=== PATIENT | male | born 1990 | race Caucasian/White ===

== ENCOUNTER 2017-03-04 20:47 | Emergency (ER) | payer OTHER ==
[2017-03-04 20:59] VITALS: BP 138/93
--- NOTE | 2017-03-04 21:17 | ED Physician Documentation ---
PD HPI SKIN - Stated complaint Stated Complaint: MALE - Chief complaint Chief Complaint: Wound - History obtained from History obtained from: Patient - History of Present Illness Timing - onset: Other (He has had a long-standing intermittent rash on his groin , previously diagnosed as jock itch. Now he has lesions on the shaft of the penis which is atypical and he wonders if it might be something else. He is in a monogamous long-term relationship, has been for 7 months.) PD PAST MEDICAL HISTORY - Past Medical History Past Medical History: No - Past Surgical History Past Surgical History: No - Present Medications Home Medications: Ambulatory Orders Medication Instructions Recorded Confirmed Acyclovir 800 mg PO TID 10 Days #6 tablet 03/04/17 - Allergies Allergies/Adverse Reactions: Allergies Allergy/AdvReac Type Severity Reaction Status Date / Time No Known Drug Allergies Allergy Verified 03/04/17 20:59 - Social History Does the pt smoke?: No Smoking Status: Never smoker Does the pt drink ETOH?: No Does the pt have substance abuse?: No - Immunizations Immunizations are current?: Yes - POLST Patient has POLST: No PD ED PE NORMAL - Vitals Vital signs reviewed: Yes - General General: Alert and oriented X 3, No acute distress - Abdomen Abdomen: Soft, Non tender - Male Male : Other (grouped vesicles on the left side of shaft of penis.) - Neuro Neuro: Alert and oriented X 3, Normal speech Results - Vitals Vitals: Vital Signs - 24 hr 03/04/17 20:57 Temperature 36.5 C Heart Rate 76 Respiratory 20 Rate Blood Pressure 138/93 H O2 Saturation 99 Oxygen O2 Source Room air PD MEDICAL DECISION MAKING - ED course ED course: Examination is most consistent with genital herpes. For confirmation IgG was sent and I will call him with the results. Departure - Departure Disposition: Home, Self Care Clinical Impression: Genital herpes simplex type 2 Condition: Good Record reviewed to determine appropriate education?: Yes Instructions: ED Herpes Simplex Virus Type 2 Prescriptions: Acyclovir 800 mg PO TID 10 Days #6 tablet Comments: Call your doctor to arrange a follow-up appointment, make the next available appointment. In the interim, return anytime if worse or if new symptoms develop. Your blood pressure was elevated today on check into the emergency department. This does not mean that you have hypertension, it is a common phenomenon to come to the emergency department and have elevated blood pressure. I recommend that you see your primary care physician within the week to have it rechecked when you are feeling better.
== END 2017-03-04 21:46 | disposition home or self-care (01) ==
LOC: ED 20:47
DX: A60.01 Herpesviral infection of penis (principal); R03.0 Elevated blood-pressure reading, without diagnosis of hypertension
CPT/HCPCS: 36415; 86695; 86696; 99283

== ENCOUNTER 2020-04-22 14:06 | Emergency (ER) | payer OTHER ==
[2020-04-22 14:13] VITALS: BP 146/75
[2020-04-22] MEDS ORDERED: cephALEXin 250 MG CAPSULE PO STA (14:41)
[2020-04-22] MEDS ORDERED: predniSONE 20 MG TABLET PO STA (14:41)
--- NOTE | 2020-04-22 14:46 | ED Physician Documentation ---
History of Present Illness - Stated complaint Stated Complaint: LT ARM RED/ITCHY - Chief complaint Chief Complaint: Wound - History obtained from History obtained from: Patient - History of Present Illness Timing: How many days ago (3) Pain level max: 0 Pain level now: 0 - Additonal information Additional information: 29-year-old male states that he had a tattoo on the left forearm performed on April 10. He states that he has had increased redness, swelling and itching over the past few days. Concerned about infection. No fevers. No chills. Nothing makes it better or worse. Has been using antibacterial soap and lotion at home Review of Systems Constitutional: denies: Fever, Chills GI: denies: Vomiting PD PAST MEDICAL HISTORY - Past Medical History Past Medical History: Yes Cardiovascular: None Respiratory: None Neuro: None Endocrine/Autoimmune: None GI: None : None HEENT: None Psych: None Musculoskeletal: None Derm: None - Past Surgical History Past Surgical History: No - Present Medications Home Medications: Ambulatory Orders Medication Instructions Recorded Confirmed Cephalexin [Keflex] 500 mg PO Q6H #28 capsule 04/22/20 predniSONE [Deltasone] 40 mg PO DAILY #10 tablet 04/22/20 - Allergies Allergies/Adverse Reactions: Allergies Allergy/AdvReac Type Severity Reaction Status Date / Time No Known Drug Allergies Allergy Verified 04/22/20 14:12 - Social History Does the pt smoke?: No Smoking Status: Never smoker Does the pt drink ETOH?: No Does the pt have substance abuse?: No - Immunizations Immunizations are current?: Yes - POLST Patient has POLST: No PD ED PE NORMAL - Vitals Vital signs reviewed: Yes - General General: Alert and oriented X 3, No acute distress - HEENT HEENT: Moist mucous membranes - Neck Neck: Supple, no meningeal sign - Derm Derm: Warm and dry - Extremities Extremities: Other (Left forearm there is a tattoo that is about 4 x 10 cm. 1cm Surrounding erythema and swelling. No streaking. Blanches easily. Warm.) - Neuro Neuro: Alert and oriented X 3 Results - Vitals Vitals: Vital Signs - 24 hr 04/22/20 14:10 Temperature 36.8 C Heart Rate 73 Respiratory 18 Rate Blood Pressure 146/75 H O2 Saturation 98 Oxygen O2 Source Room air PD MEDICAL DECISION MAKING - ED course Complexity details: considered differential, d/w patient ED course: Unclear if this represents an infection versus inflammatory response versus allergy. We will trial on steroids and Keflex. Patient is well-appearing, nontoxic. Afebrile. No evidence of abscess. No streaking up the arm. Patient counseled regarding signs and symptoms for which I believe and urgent re-evaluation would be necessary. Patient with good understanding of and agreement to plan and is comfortable going home at this time This document was made in part using voice recognition software. While efforts are made to proofread this document, sound alike and grammatical errors may occur. Departure - Departure Disposition: Home, Self Care Clinical Impression: Dermatitis Cellulitis Qualifiers: Site of cellulitis: extremity Site of cellulitis of extremity: upper extremity Laterality: left Qualified Code(s): L03.114 - Cellulitis of left upper limb Condition: Good Instructions: ED Infec Skin Cellulitis Follow-Up: your,doctor in 1 week [Other] Prescriptions: predniSONE [Deltasone] 40 mg PO DAILY #10 tablet Cephalexin [Keflex] 500 mg PO Q6H #28 capsule Comments: Use the medications as prescribed. This may be a reaction to the ink, this could also be an infection. Both will appear similar. We will be treating you for both and see how you progress. Return if you worsen. Follow-up with your doctor for a wound check next week.
== END 2020-04-22 15:02 | disposition home or self-care (01) ==
LOC: ED 14:06
DX: L03.114 Cellulitis of left upper limb (principal); L30.9 Dermatitis, unspecified; L81.8 Other specified disorders of pigmentation
CPT/HCPCS: 99282; 99284; A9270; J7512

== ENCOUNTER 2020-11-29 17:04 | Emergency (ER) | payer OTHER ==
[2020-11-29] MEDS ORDERED: predniSONE 20 MG TABLET PO STA (17:29)
[2020-11-29] MEDS: IPRATROPIUM/ALBUTEROL 3 ML NEB INH STA ×2 (17:32)
--- NOTE | 2020-11-29 17:42 | ED Physician Documentation ---
History of Present Illness - Stated complaint Stated Complaint: BODY RASH - Chief complaint Chief Complaint: Allergic Rx - History obtained from History obtained from: Patient - History of Present Illness Timing: How many days ago (3) Pain level max: 0 Pain level now: 0 - Additonal information Additional information: Patient is a 30-year-old male who presents to the emergency department for rash to the right lower extremity, of the right groin and the left leg. These have been ongoing for the past 2 to 3 days. Initially the groin rash was itchy, but is no longer itchy. The right lower extremity rash has been itchy intermittently. Does not recall any new soaps, detergents, exposures. No outdoor pets. Nothing makes it better or worse. No fevers. No chills. No recent illness Review of Systems Constitutional: denies: Fever, Chills GI: denies: Vomiting, Diarrhea Musculoskeletal: denies: Neck pain, Back pain Neurologic: denies: Headache PD PAST MEDICAL HISTORY - Past Medical History Past Medical History: No Cardiovascular: None Respiratory: None Neuro: None Endocrine/Autoimmune: None GI: None : None HEENT: None Psych: None Musculoskeletal: None Derm: None - Past Surgical History Past Surgical History: No - Present Medications Home Medications: Ambulatory Orders Medication Instructions Recorded Confirmed cephALEXin [Keflex] 500 mg PO Q6H #28 capsule 04/22/20 predniSONE [Deltasone] 40 mg PO DAILY #10 tablet 04/22/20 predniSONE [Deltasone] 10 mg PO [id number] #42 tab 11/29/20 - Allergies Allergies/Adverse Reactions: Allergies Allergy/AdvReac Type Severity Reaction Status Date / Time No Known Drug Allergies Allergy Verified 11/29/20 17:06 - Social History Does the pt smoke?: No Smoking Status: Never smoker Does the pt drink ETOH?: No Does the pt have substance abuse?: No - Immunizations Immunizations are current?: Yes - POLST Patient has POLST: No PD ED PE NORMAL - Vitals Vital signs reviewed: Yes - General General: Alert and oriented X 3, No acute distress - HEENT HEENT: Moist mucous membranes - Neck Neck: Supple, no meningeal sign - Cardiac Cardiac: RRR - Respiratory Respiratory: No respiratory distress, Clear bilaterally - Abdomen Abdomen: Soft, Non tender, Non distended - Derm Derm: Warm and dry - Extremities Extremities: Other (There is a 4 x 4 centimeter area, erythematous, no scaling, no plaque to RLE, similar rash to LLE and R groin near the waistband (2x2cm)) - Neuro Neuro: Alert and oriented X 3 - Psych Psych: Normal mood, Normal affect Results - Vitals Vitals: Vital Signs - 24 hr 11/29/20 17:07 Temperature 36.5 C Heart Rate 68 Respiratory 16 Rate O2 Saturation 98 Oxygen O2 Source Room air PD MEDICAL DECISION MAKING - ED course Complexity details: considered differential, d/w patient ED course: Dermatitis of unclear etiology. Patient will follow up with his doctor and/or dermatology as needed for further care. Does not appear fungal. Does not appear to be infectious or cellulitis. Will trial on steroids. Patient counseled regarding signs and symptoms for which I believe and urgent re- evaluation would be necessary. Patient with good understanding of and agreement to plan and is comfortable going home at this time This document was made in part using voice recognition software. While efforts are made to proofread this document, sound alike and grammatical errors may occur. Departure - Departure Disposition: 01 Home, Self Care Clinical Impression: Dermatitis Condition: Good Instructions: ED Dermatitis Non Specific Rash Follow-Up: [facility] [Provider Group] - Within 1 week Prescriptions: predniSONE [Deltasone] 10 mg PO [id number] #42 tab Comments: The cause of your symptoms is unclear today. Please follow-up with your doctor for further care. You should also consider follow-up with dermatology if this does not improve.
[2020-11-29 17:53] VITALS: BP 131/82
== END 2020-11-29 17:53 | disposition home or self-care (01) ==
LOC: ED 17:04
DX: L30.9 Dermatitis, unspecified (principal)
CPT/HCPCS: 99282; 99284; J7512

== ENCOUNTER 2022-05-27 06:40 | Emergency (ER) | payer OTHER ==
[2022-05-27 06:55] VITALS: BP 143/88
[2022-05-27] MEDS ORDERED: CETIRIZINE 10 MG TABLET PO STA (08:13)
--- NOTE | 2022-05-27 08:15 | ED Physician Documentation ---
PD HPI OPHTHO - Stated complaint Stated Complaint: RT EYE SWELLING/REDNESS - Chief complaint Chief Complaint: Heent - History obtained from History obtained from: Patient - History of Present Illness Timing - onset: How many days ago (2) Timing - duration: Days (2) Timing - details: Gradual onset, Still present (much worse swelling and redness this morning, with notable edema of the sclera.) Location: Right Quality / character: Burning Associated symptoms: Redness, Swelling, Matting. No: Photophobia, Decreased vision, Headache Contributing factors: No: Exposed to conjunctivitis, Recent URI, FB, Wears contacts Similar symptoms before: Has not had sx before Recently seen: Clinic (he had irritation and redness with some matting of right eye and went to walk in clinic yesterday and rx neomycin/polymixin/sulfa eye drops for Dx of conjunctivitis. Patient used drops in evening and before bed. Awoke this morning with marked hyperemia and scleral edema. Left eye feels okay.) Review of Systems Constitutional: denies: Fever, Chills Nose: denies: Rhinorrhea / runny nose, Congestion Throat: denies: Sore throat PD PAST MEDICAL HISTORY - Past Medical History Cardiovascular: None Respiratory: None Neuro: None Endocrine/Autoimmune: HyPOthyroidism GI: None : None HEENT: None, Other Psych: None Musculoskeletal: None Derm: None Other Past Medical History: conjunctivitis - Past Surgical History Past Surgical History: No HEENT: Cataracts - Present Medications Home Medications: Ambulatory Orders Medication Instructions Recorded Confirmed Levothyroxine Sodium [Synthroid] 50 mg PO DAILY 02/26/22 05/27/22 Ketotifen Fumarate [Alaway] 2 - 3 drops RIGHTEYE QID 5 Days #5 05/27/22 ml Tobramycin [Tobrex] 2 drops RIGHTEYE QID 5 Days #5 ml 05/27/22 - Allergies Allergies/Adverse Reactions: Allergies Allergy/AdvReac Type Severity Reaction Status Date / Time No Known Drug Allergies Allergy Verified 05/27/22 06:50 - Social History Does the pt smoke?: No Smoking Status: Never smoker Does the pt drink ETOH?: No Does the pt have substance abuse?: No - Immunizations Immunizations are current?: Yes - POLST Patient has POLST: No PD ED PE NORMAL - Vitals Vital signs reviewed: Yes - General General: Alert and oriented X 3, No acute distress, Well developed/nourished - HEENT HEENT: PERRL, EOMI, Other (left eye appears normal. No direct nor consensual pain with light. Pupils react. Anterior and posterior chambers appear normal. marked hyperemia right eye, with scleral redness and also edematous swelling, more to the 6-10 oclock areas. ) Results - Vitals Vitals: Vital Signs - 24 hr 05/27/22 06:51 Temperature 36.9 C Heart Rate 84 Respiratory 16 Rate Blood Pressure 143/88 H O2 Saturation 97 Oxygen O2 Source Room air PD Medical Decision Making - ED course Complexity details: considered differential (seems conjunctivitis is reasonable initial diangosis. the marked increase in redness/sceral edema this monring seems almost too much reaction for conjunctivitis infectious and I would consider allergic reaction to the drops. As such I would change abx drops. Can also add in Ketotifen antihistamine. ), d/w patient Social Determinants of Health: he is due to go on deployment in 1 day. I believe he will be okay for that, as infectious pink eye is less contagious after 24 hours on meds, and the edema of the sclera whould be considerable decreased once stopping the current drops and adding antihistamine. Departure - Departure Disposition: 01 Home, Self Care Clinical Impression: Conjunctivitis, right eye Qualifiers: Conjunctivitis type: acute Acute conjunctivitis type: unspecified Qualified Code(s): H10.31 - Unspecified acute conjunctivitis, right eye Condition: Stable Record reviewed to determine appropriate education?: Yes Follow-Up: [facility] [Provider Group] Prescriptions: Ketotifen Fumarate [Alaway] 2 - 3 drops RIGHTEYE QID 5 Days #5 ml Tobramycin [Tobrex] 2 drops RIGHTEYE QID 5 Days #5 ml Comments: The worsening of your with the redness and swelling of the sclera may be a progression of the conjunctivitis/pinkeye that you had been developing. However as dramatic as it is, more inclined to think an allergic reaction to the antibiotic drops that you were prescribed. I would have you stop the current antibiotic eyedrops. We can change to tobramycin eyedrops 4 times daily for the next 4 to 5 days. I would also add ketotifen antihistamine eyedrops 2 to 3 drops 4 times a day over the next couple of days and then as needed for redness and swelling. I would anticipate improvement through the day today and into tomorrow. You should be noninfectious after another 24 hours on the drops so you are cleared for your travel tomorrow. I sent your prescriptions to [facility] in [place]. Recheck if not improving well through the day or if continued worsening. Discharge Date/Time: 05/27/22 08:33
== END 2022-05-27 08:33 | disposition home or self-care (01) ==
LOC: ED 06:40
DX: H10.31 Unspecified acute conjunctivitis, right eye (principal)
CPT/HCPCS: 99282; 99283; A9270

== ENCOUNTER 2022-11-28 17:12 | Outpatient (CLI) | payer OTHER ==
--- NOTE | 2022-12-01 08:41 | MRI Report ---
PROCEDURE: LUMBAR SPINE WO INDICATIONS: LOW BACK PAIN TECHNIQUE: Noncontrast sagittal T1 spin echo and T2 fast echo, sagittal STIR, axial T1 and T2 fast spin echo thr ough the lumbar spine. In cases with scoliosis, additional coronal T2 fast spin echo may be performe d. COMPARISON: None. FINDINGS: Image quality: Excellent. Alignment and Curvature: There is normal bony alignment. Bone Marrow: Marrow is of normal overall signal. No acute vertebral body compression fractures. Spinal Cord: Conus medullaris terminates at the L1-L2 level. Visualized cord demonstrates normal si gnal and size. Paraspinous Soft Tissues: No paravertebral masses. T12-L1: Normal in appearance. L1-L2: Normal in appearance. L2-L3: Normal in appearance. L3-L4: Normal in appearance. L4-L5: Very mild facet hypertrophy. No canal stenosis or foraminal stenosis. L5-S1: Disc bulge. Facet hypertrophy. Mild canal stenosis. Right foraminal annulus tear, plus disc bulge abutting the right S1 nerve root in the right lateral recess . Mild to moderate bilateral lamar inal stenosis. IMPRESSION: 1. Lower lumbar facet arthropathy. 2. At L5-S1 there is mild canal stenosis. There is an annulus tear plus disc bulge subjacent to the r ight S1 nerve root in the right lateral recess. Disc material abuts the right S1 nerve root. Question : Does this patient have right S1 radiculopathy? Reviewed by: Ruben Lau MD on 12/01/2022 8:40 AM PDT Approved by: Ruben Lau MD on 12/01/2022 8:40 AM PDT Station ID: [id number]
== END 2022-11-28 17:13 | disposition home or self-care (01) ==
LOC: DI 17:12
PROVIDERS: ATTEND Preventive Medicine Aerospace Medicine
DX: M47.816 Spondylosis without myelopathy or radiculopathy, lumbar region (principal); M48.07 Spinal stenosis, lumbosacral region; M51.37 Other intervertebral disc degeneration, lumbosacral region

== ENCOUNTER 2023-01-14 08:24 | Outpatient (CLI) | payer OTHER ==
--- NOTE | 2023-01-14 09:18 | Sleep Patient Instructions ---
Sleep Center Visit Summary - Patient Visit Information Reason for Visit: Initial consult for evaluation of sleep disordered breathing and other sleep issues. - Patient Instructions Instructions Attached: Sleep Study Home Monitor Additional Instructions: You will be completing a sleep study, either an in-lab polysomnography (PSG) or home sleep study (HST). You will follow-up in the sleep care office after the sleep study is completed to hear the results and talk about therapy, if needed. You will be called by our office staff to schedule this appointment, but you may contact us with any questions. - Clinic Information Contact: [facility] [address] [place] [address] [email or web address] T: [phone]
--- NOTE | 2023-01-14 09:28 | SLEEP CARE CONSULTATION ---
Information from patient questionnaire entered by Sujit Gabriel. I have reviewed and concur with the information entered by Sujit Gabriel. This document represents the service I personally performed and the decisions made by me, Kamilla Fontanez ARNP. History of Present Illness Service Date and Time: 01/14/2023 08 Reason for Visit: New patient Chief Complaint: reports: Snoring, Excessive daytime sleepiness, Observed pauses in breathing Date of Onset: 1+YRS Usual bedtime: 930-10PM Time it takes to fall asleep: 1.5 HRS OR LESS Snores at night: Yes Observed to quit breathing while asleep: Yes Sleeps alone due to snoring: Yes Number of times waking at night: 3 Reasons for waking at night: reports: Choking, Snoring, Bathroom, Other (UNKNOWN; coughing). denies: Gasping for air Toss, Turn, or Twitch while sleeping: Yes Recalls having dreams: Yes (sometimes) Usually gets out of bed at: 0530, sometimes later Feels refreshed in the morning: No Morning headache: Yes (3-4 days a week; last till 11-12 pm) Sleepy or fatigued during the day: Yes Ever fallen asleep while driving: No (can get drowsy driving with long drives) Takes day naps: No Prior sleep studies: No Additional HPI information: I had the pleasure of seeing ROLAN WALKER today regarding the possibility of him having a sleep disorder. His current complaints are excessive daytime sleepiness, snoring and observed pauses in breathing. He states his has encouraged him to get his snoring checked out because it is so loud and he will keep her up with his coughing at night. He will wake up coughing and get drinks of water. He sometimes feels like there is something in his throat which triggers the cough and sometimes it is just dry. He wakes up feeling fatigued and is tired all day. He has been told that he will stop breathing and then take an quick inhale and cough then returning to snoring. He wakes up with headache half the time in the mornings that resolve after a few hours. - Parasomnia Symptoms Ever been unable to move upon waking from sleep: No Walks in sleep: No Talks in sleep: Yes Ever acted out dreams in sleep: No Ever felt weak in the knees when startled or emotional: No Bothered by creepy, crawly, restless sensations in legs: No Problems with memory or concentration: Yes (concentration sometimes) Subjective Initial [place] Sleepiness Scale score: 14 (01/14/23) Past Medical History Past Medical History: reports: Hypothyroidism, Anxiety, Depression Social History The patient's occupation is a AM. Patient is and lives in [place]. Have you smoked in the past 12 months: No Alcohol use: No Caffeine use: Yes Caffeine amount and frequency: 2 EVERYDAY Family History Family history of sleep disordered breathing: Yes Family Hx Sleep Apnea: Mother: Snoring, Father: Snoring, Sibling: Snoring, Grandparent: Snoring Allergies and Home Medications Known drug allergies: No Drug allergies reviewed: Yes Home medication list reviewed: Yes Allergy and home medication list: Allergies No Known Drug Allergies Allergy (Verified 01/13/23 12:34) Home Medications Medication Instructions Recorded Confirmed Last Taken Type Levothyroxine Sodium [Synthroid] See Rx Instructions .ROUTE .COMPLEX 01/14/23 01/14/23 Unknown History Meloxicam See Rx Instructions .ROUTE .COMPLEX 01/14/23 01/14/23 Unknown History Review of Systems Weight loss over past 5 years: 50 Cardiovascular: denies: high blood pressure Respiratory: reports: chronic cough. denies: shortness of breath Gastrointestinal: reports: heartburn Neurological: denies: headaches, head trauma Psychiatric: reports: anxiety, depression. denies: Attention Deficit Hypera ctivity Ear/Nose/Throat: reports: nasal congestion, sinus problems, wisdom teeth removed. denies: injury to nose, tonsillectomy Endocrine: reports: thyroid disease Musculoskeletal: reports: joint pain, neck pain, back pain Immunologic: reports: sneezing, allergies to food or environment Physical Exam Vital signs obtained and entered by: SUJIT Woodall MA Blood Pressure: 118/76 (LEFT ARM) Cuff size: regular Heart Rate: 58 O2 Saturation: 98 Height: 5 ft 7 in Weight: 207 lb Body Mass Index: 32.4 BMI Classification: Obese Neck circumference: 16.5 Mouth and throat: narrow oropharynx Soft palate: long Hard palate: normal Uvula: normal Uvula visualization: 25% Mallampati Class III Tongue: normal in size Tonsils: 1+ Neck: normal w/o lymphadenopathy or thyromegaly Heart: regular rate and rhythm Lungs: clear bilaterally Impression and Plan 1. Suspected Obstructive Sleep Apnea-Hypopnea Syndrome, as suggested by a history of loud and irregular snoring, observed cessation of breath while asleep, gasping or choking in sleep, morning headache, unrefreshed sleep, cognitive impairment, and excessive daytime sleepiness. Narrow oropharynx and obesity are common predisposing factors for obstructive sleep apnea-hypopnea syndrome. I recommend proceeding to polysomnography to confirm the diagnosis and to assess severity. If the patient has significant sleep disordered breathing, a manual CPAP titration study will also be performed to find the optimal treatment pressure. I informed the patient of what the sleep studies involve and after some discussion, obtained agreement to proceed. The pathophysiology of obstructive sleep apnea-hypopnea syndrome was discussed with the patient and health risks of cardiovascular and cerebrovascular disease if not treated. Risks of drowsy driving discussed in detail and patient advised to avoid long distance driving and to pull through hooker at the first sign of drowsiness. Patient agreed to plan. * Schedule polysomnography. * Avoid long distance driving or driving when feeling sleepy. * Avoid alcohol, sedative and muscle relaxant around bedtime. * Attempt to lose weight. * Review instructions provided by trained office staff on how to prepare for the sleep study. * Return for follow-up after sleep study completed. Counseling Topics: Weight loss health impact Plan: PSG/HST and then followup Visit Type: In Office Time Spent with Patient (minutes): 30 Provider Statement: I spent 100% of the Face to Face Visit with the patient with greater than 50% spent counseling the patient and coordination of care.
[2023-01-14 09:29] VITALS: BP 118/76; O2SAT 98
== END 2023-01-14 08:25 | disposition home or self-care (01) ==
LOC: SC 08:24
PROVIDERS: ATTEND Nurse Practitioner Family
DX: R06.83 Snoring (principal); G47.8 Other sleep disorders; R06.81 Apnea, not elsewhere classified; R51.9 Headache, unspecified; G47.10 Hypersomnia, unspecified; R53.83 Other fatigue; F32.A Depression, unspecified; E66.9 Obesity, unspecified; Z68.32 Body mass index [BMI] 32.0-32.9, adult
CPT/HCPCS: 99203; 99212

== ENCOUNTER 2023-01-26 12:01 | Outpatient (CLI) | payer OTHER | END 2023-01-26 12:02 | disposition home or self-care (01) | LOC: SC 12:01 | PROVIDERS: ATTEND Nurse Practitioner Family | DX: G47.33 Obstructive sleep apnea (adult) (pediatric) (principal); R09.02 Hypoxemia; E66.9 Obesity, unspecified; Z68.32 Body mass index [BMI] 32.0-32.9, adult | CPT/HCPCS: 95806 ==

== ENCOUNTER 2023-02-03 12:38 | Outpatient (CLI) | payer OTHER ==
--- NOTE | 2023-02-03 13:13 | Sleep Patient Instructions ---
Sleep Center Visit Summary - Patient Visit Information Reason for Visit: Sleep study followup - Patient Instructions Instructions Attached: CPAP Dc, CPAP Additional Instructions: You are being started on CPAP therapy with pressure setting at 4-15 cmH2O. You will need to call the sleep care office to set up your follow up once you have your APAP machine and we will schedule a visit to check compliance and response to therapy at that time. You may call the office with any concerns about pressure feeling too low or too much for adjustment, if needed. You should contact DME supplier for any questions or concerns about mask or equipment. Please call office to schedule a follow up appointment in the sleep care office one month after obtaining new device. - Clinic Information Contact: [facility] [address] [place] [address] [email or web address] T: [phone]
--- NOTE | 2023-02-03 13:16 | SLEEP CARE CONSULTATION ---
Information from patient questionnaire entered by Keeley Gabriel. I have reviewed and concur with the information entered by Keeley Gabriel. This document represents the service I personally performed and the decisions made by me, Kamilla Fontanez ARNP. History of Present Illness Service Date and Time: 02/03/2023 1238 Initial [place] Sleepiness Scale score: 14 (01/14/23) Current [place] Sleepiness Scale score: 12 (02/03/23) Additional HPI information: ROLAN WALKER returns for follow up and results of the recently performed home sleep study. The sleep study showed mild obstructive sleep apnea with an average AHI of 11.8 and brendon oxygen saturation of 86%. I explained the pathophysiology behind obstructive sleep apnea. We then spent quite a bit of time discussing different treatment options. For mild obstructive sleep apnea, surgery and oral appliance are alternatives to nasal CPAP therapy but in moderate or severe cases, nasal CPAP is the most effective and reliable treatment. Because apnea is primarily in supine position, then positional management therapy could be effective. Methods discussed such as positioning with pillows, using a T-shirt with tennis balls in the back or commercial products that have a pillow format on back to prevent supine sleep. I reviewed the impact of weight changes on sleep apnea and strongly recommended losing weight. After some discussion, the patient opted to go with the nasal CPAP therapy. Nasal autoCPAP set at 4-15 cmH20 will be ordered with rationale explained. A manual titration study will be ordered if unable to find optimal pressure with office adjustments. I explained how CPAP machine works and what to expect when using the machine. Using CPAP every night in order to get used to it was emphasized. Patient advised to put CPAP mask on before getting into bed so as not to fall asleep without CPAP. To assist acclimation to CPAP use, it could also be used for a short time during day while reading or watching TV. The patient was instructed to call the CPAP supplier to discuss any mechanical problem that may occur. If the mask given is uncomfortable or is difficult to keep on through the night even with adjustment, contact the CPAP supplier as many will replace with another mask style if notified before 30 days. If snoring or perceives is not getting enough air or too much air from the machine, notify this office. Patient does not drink alcohol. Patient was cautioned about risks of drowsy driving until sleepiness symptoms resolve. Patient denies drowsy driving. Sleep Study - Results Type of Sleep Study: Home sleep study (COMPLETED 01/26/2023) Prior sleep studies: No Polysomnography/Home Sleep Study results: Physician Impression: The quality of the study is good. The length of the study is adequate (> 240 minutes). Please also see the tabulated and graphic data. 1. Obstructive Sleep Apnea-Hypopnea (ICD-10 G47.33), mild, with an AHI of 11.8 /hr and brendon SaO2 of 86%. During the study, the patient had 14 apneas (14 obstructive, 0 central, 0 mixed) and 83 hypopneas. The longest episode lasted 106.5 seconds. The respiratory events occurred almost exclusively during supine sleep (supine AHI was 14.0 and non-supine, 0.73). 2. Hypoxemia (ICD-10 R09.02), mild, with the lowest oxygen saturation of 86 % and 0.5 minutes with SaO2 under 90%. Baseline oxygen saturation was normal (Average oxygen saturation was 95%). Allergies and Home Medications Known drug allergies: No Drug allergies reviewed: Yes Home medication list reviewed: Yes (Lidocaine patch for back pain) Allergy and home medication list: Allergies No Known Drug Allergies Allergy (Verified 02/03/23 12:26) Review of Systems Review of systems same as previous: Yes (NO CHANGE) Physical Exam Vital signs obtained and entered by: KEELEY Woodall MA Blood Pressure: 110/70 (LEFT ARM) Cuff size: regular Heart Rate: 69 O2 Saturation: 97 Height: 5 ft 7 in Weight: 208 lb Body Mass Index: 32.5 BMI Classification: Obese Impression and Plan 1. Obstructive Sleep Apnea-Hypopnea Syndrome, mild, with lowest oxygen s aturation of 86%. Obviously this is the cause of the patients symptoms of unrefreshed sleep, and excessive daytime sleepiness. Positive pressure therapy could benefit anxiety and depression. As mentioned above, the patient will be started on nasal autoCPAP therapy with pressure set at 4-15 cmH2O. A manual titration study will be completed if unable to find optimal treatment pressure with office adjustments. Compliance guidelines also reviewed. A copy of compliance guidelines will be given for reference at check out. Because the apnea is more severe supine, I instructed to avoid sleeping supine using pillow positioning until able to start CPAP use. 2. Obesity, unspecified. Currently patients BMI is 32.5. Obesity increases the risk of apnea, CPAP pressure requirements and overall health risks especially cardiovascular and diabetes. Thus patient is advised to lose weight. * Nasal auto CPAP therapy, pressure at 4-15 cm H2O. * Attempt to lose weight. * Avoid alcohol consumption near bedtime. * Avoid supine sleep until using CPAP. * The patient is again cautioned about driving until sleepiness completely resolves. * Return one month after CPAP obtained. I will assess response to therapy and compliance at that time. Counseling Topics: Weight loss health impact Prescriptions: Auto CPAP Visit Type: In Office Time Spent with Patient (minutes): 20 Provider Statement: I spent 100% of the Face to Face Visit with the patient with greater than 50% spent counseling the patient and coordination of care.
[2023-02-03 13:17] VITALS: BP 110/70; O2SAT 97
== END 2023-02-03 12:39 | disposition home or self-care (01) ==
LOC: SC 12:38
PROVIDERS: ATTEND Nurse Practitioner Family
DX: G47.33 Obstructive sleep apnea (adult) (pediatric) (principal); E66.9 Obesity, unspecified; Z68.32 Body mass index [BMI] 32.0-32.9, adult
CPT/HCPCS: 99212; 99213

== ENCOUNTER 2023-04-03 15:50 | Outpatient (CLI) | payer OTHER ==
--- NOTE | 2023-04-03 16:28 | Sleep Patient Instructions ---
Sleep Center Visit Summary - Patient Visit Information Reason for Visit: First Compliance visit for CPAP therapy - Patient Instructions Additional Instructions: You were here for follow up of CPAP therapy. You will be continued on CPAP therapy with pressure at 5-8 cmH2O. Please let us know if the pressure change is uncomfortable and we can make further adjustments of the pressure. You should follow up with sleep care in 1-2 months. You may contact us sooner for any questions or concerns. - Clinic Information Contact: [facility] [address] [place] [address] [email or web address] T: [phone]
--- NOTE | 2023-04-03 16:30 | SLEEP CARE CONSULTATION ---
Information from patient questionnaire entered by Sujit Gabriel. I have reviewed and concur with the information entered by Sujit Gabriel. This document represents the service I personally performed and the decisions made by , Kamilla Fontanez ARNP. History of Present Illness Service Date and Time: 04/03/2023 1550 Previous diagnosis: Mild, Obstructive Sleep Apnea-Hypopnea Syndrome AHI: 11.8 (01/2023) Reason for follow up: first compliance Equipment type: CPAP (RESMED 11, s/u 02/2023) Equipment obtained from: Other ([facility]; getting supplies) Mask style: Nasal Backup mask available: No (will keep old mask when replaced) Last cushion change: Thursday Prior sleep studies: No Type of Sleep Study: Home sleep study (COMPLETED 01/26/2023) HPI additional information: ROLAN WALKER was diagnosed to have mild, AHI 11.8, obstructive sleep apnea- hypopnea syndrome and returned today for CPAP therapy first compliance follow- up. Sleep Study - Results Type of Sleep Study: Home sleep study (COMPLETED 01/26/2023) Prior sleep studies: No CPAP Compliance Data - Data Reviewed with Patient Average duration of nightly device use: 5 HRS 40 MINS Compliance rate %: 73 (/09/02; days used) Current pressure setting (cmH2O): 4-15 (median 5.2, avg 7.2, max 8.1) Average residual AHI: 0.5 Central apnea: 0.2 Obstructive apnea: 0.2 Average large leak: 0.5 L/min Subjective Patient concerns: reports: condensation in mask/hose (sometimes), nasal congestion (not all the time). denies: aerophagia, mask discomfort, air blowing in eyes, mask leak noise, dry mouth, nose, throat, epistaxis Observed to snore while using device: No Current pressure setting perceived as: comfortable On therapy, patient: reports: sleeping better, awakening more refreshed, being more awake and alert during the day, more rested overall. denies: drowsiness while driving Initial [place] Sleepiness Scale score: 14 (01/14/23) Current [place] Sleepiness Scale score: 2 (04/03/23) Allergies and Home Medications Known drug allergies: No Drug allergies reviewed: Yes Home medication list reviewed: Yes (no changes) Allergy and home medication list: Allergies No Known Drug Allergies Allergy (Verified 04/02/23 10:50) Review of Systems Review of systems same as previous: No (NASAL CAUTERIZATION) Physical Exam Vital signs obtained and entered by: SUJIT Woodall MA Blood Pressure: 130/95 (RIGHT ARM) Cuff size: regular Heart Rate: 73 O2 Saturation: 99 Height: 5 ft 7 in Weight: 217 lb 12.8 oz Body Mass Index: 34.1 BMI Classification: Obese Impression and Plan 1. Obstructive Sleep Apnea-Hypopnea Syndrome, mild, with good treatment compliance and good apnea control. On CPAP therapy, the patient has better sleep quality and is more rested overall. Patient has significant improvement of their sleep apnea and is satisfied with current CPAP therapy. The patients pressure will be changed to autoCPAP 5-8 cmH20 to reflect pressure being used. Patient advised to contact me if pressure change is uncomfortable so that it can be adjusted. Goals for apnea control discussed. Patient's apnea severity and rationale for treatment to reduce apnea, improve sleep quality and reduce cardiovascular and cerebrovascular events was reviewed. I also reviewed the benefit of consistent device use of CPAP for depression/anxiety. 2. Obesity, unspecified. Currently patients BMI is 34.1. Obesity increases the risk of apnea, CPAP pressure requirements and overall health risks especially cardiovascular and diabetes. Thus patient is advised to lose weight. * Change auto CPAP pressure to 5-8 cmH2O * Notify me if snoring with mask or feeling that the pressure is too much or too little * Attempt to lose weight * Call this office if any problems using CPAP * Return for follow up in 1-2 months, or sooner if concerns arise Counseling Topics: Spare mask, Weight loss health impact Follow up with Sleep Care in: 1-2 months Visit Type: In Office Time Spent with Patient (minutes): 16 Provider Statement: I spent 100% of the Face to Face Visit with the patient with greater than 50% spent counseling the patient and coordination of care.
[2023-04-03 16:37] VITALS: BP 130/95; O2SAT 99
== END 2023-04-03 15:51 | disposition home or self-care (01) ==
LOC: SC 15:50
PROVIDERS: ATTEND Nurse Practitioner Family
DX: G47.33 Obstructive sleep apnea (adult) (pediatric) (principal); E66.9 Obesity, unspecified; Z68.34 Body mass index [BMI] 34.0-34.9, adult
CPT/HCPCS: 99212